=== PATIENT | male | born 1980 | race Caucasian/White ===

== ENCOUNTER 2016-08-05 12:26 | Emergency (ER) | payer SELFPAY ==
--- NOTE | 2016-08-05 13:30 | ED CLINICAL REPORT ---
Clinical Report - Physicians/Mid Levels [facility] [address] [place] [address] 08/05/2016 12:27 Patient: NARCISO AKINS Time Seen: 13:05; initial patient contact, initial documentation, patient care assumed. Arrived- By private vehicle. Historian- patient. HISTORY OF PRESENT ILLNESS Chief Complaint: COUGH. This started about 3 months ago and is still present. It was abrupt in onset and has been constant. The illness is described as moderate. The patient has had a cough and a sore throat. He has had scant amounts of thick, yellow, green sputum. No difficulty breathing, chest discomfort or pain, fever or muscle aches. No nasal congestion or discharge, sinus pressure, sinus drainage or ear pain. (has left over amoxicillin, self dx himself with bronchitis x6 wks ago and took the leftover abx). Additional history - No known contact with a sick individual. No recent travel. Similar symptoms previously: None. Recent medical care: Not recently seen/assessed. REVIEW OF SYSTEMS No vomiting or diarrhea. All systems otherwise negative, except as recorded above. PAST HISTORY See nurses notes. Hypertension. Surgeries: Appendectomy. Tonsillectomy. SOCIAL HISTORY Heavy tobacco smoker. Regular alcohol use; consumes beer and liquor. History of occasional drug use: marijuana. Not exposed to second-hand smoke at home. No recent travel. Is a local resident. FAMILY HISTORY Negative. ADDITIONAL NOTES The nursing notes have been reviewed with agreement regarding the chief complaint, HPI, ROS, PMH and patient medications and allergies. PHYSICAL EXAM Vital Signs: 08/05/2016 12:37 BP: 136/6. HR: 90. RR: 20. O2 saturation: 98%. Temp: 97.7 F. Pain level now: 0/10. Have been reviewed as normal and do not appear to be correct. Heart rate normal. Respiratory rate normal. Temperature normal. Oxygen saturation normal. Appearance: Alert. No acute distress. Eyes: Pupils equal, round and reactive to light. Eyes normal inspection. ENT: Ears normal. Nose normal. Pharynx abnormal. Uvula midline. (cobblestone pharynx). Neck: Normal inspection. Neck supple. CVS: Normal heart rate and rhythm. Heart sounds normal. Pulses normal. Respiratory: No respiratory distress. Breath sounds abnormal. Inspiratory mild bilateral wheezes diffusely. Abdomen: Soft and nontender. No organomegaly. Back: Normal inspection. Skin: Skin warm and dry. Normal skin color. No rash. Normal skin turgor. Extremities: Extremities exhibit normal ROM. No lower extremity edema. Neuro: Oriented X 3. No motor deficit. No sensory deficit. PROGRESS AND PROCEDURES Patient counseled in person regarding the patient's stable condition and diagnosis. Differential Diagnosis: Other possible considerations: viral illness, flu, sinusitis, pharyngitis, bronchitis, allergies, asthma, pneumonia. Above considerations are based on history and physical exam. Differential diagnosis was discussed with patient. Disposition: Discharged home in good and unchanged condition (13:30). Condition: good and stable. CLINICAL IMPRESSION Acute bacterial mucopurulent bronchitis. INSTRUCTIONS Drink plenty of fluids for the next 24 hours until better. Warnings: GENERAL WARNINGS: Return or contact your physician immediately if your condition worsens or changes unexpectedly, if not improving as expected, or if other problems arise. Specifically return if problem worsens. Prescription Medications: Albuterol HFA oral inhaler: inhale 1 to 2 puffs every four to six hours as needed for difficulty breathing. Dispense one (1) unit. No refills. Robitussin A-C cough syrup take one (1) teaspoon orally every 6 hours as needed for cough. Dispense sixty (60) mL. No refill. Zithromax 250 mg tablets: take 2 orally today, followed by 1 daily for the next 4 days. No refills. Substitution is permissible. Follow-up: Follow up with your doctor in about three days even if well. Call for an appointment. Summary of care provided to patient. Understanding of the discharge instructions verbalized by patient. (Electronically signed by Tiki Joya A.R.N.P. 08/05/2016 19:11)
--- NOTE | 2016-08-05 13:30 | ED NURSING NOTES ---
Clinical Report - Nurses [facility] [address] [place] [address] 08/05/2016 12:27 Patient: NARCISO AKINS TRIAGE Triage time 12:37. Acuity: LEVEL 4. Chief Complaint: COUGH. SEPSIS SCREEN: Sepsis Screen. Negative (no infection suspected/documented). --12:42 Juany Swift R.N. 12:37 08/05/16. BP: 136/6. HR: 90. RR: 20. O2 saturation: 98%. Temp: 97.7 F. Pain level now: 010. --12:42 Juany Swift R.N. Weight: 90.7 kg stated. Height/Length: 72 inches Per Patient. BMI: 27.1. --12:36 Juany Swift R.N. Medications Naproxen daily. --12:39 Juany Swift R.N. ProAir HFA Inhalation. --12:40 Juany Swift R.N. Allergies No Known Drug Allergy. --12:38 Juany Swift R.N. History Arrived by private vehicle. Historian: patient. Onset. (months). ( worsening). PAST MEDICAL HX: Hypertension. Immunizations: up-to-date. SURGERY HX: Adenoidectomy. Appendectomy. Tonsillectomy. SOCIAL HX: Heavy tobacco smoker- more than 2 packs per day. Regular alcohol use; consumes beer daily and two liquor and wine. Last drink was 12 hours ago. History of drug use: marijuana. No infectious disease exposure. --12:42 Juany Swift R.N. Interventions ID band on patient. --12:42 Juany Swift R.N. PHYSICAL ASSESSMENT GENERAL / NEURO / PSYCH: Alert. Oriented X 4. Appears in no acute distress. HEENT: Pupils equal, round and reactive to light. Mouth within normal limits upon inspection. Hoarse voice. RESPIRATORY: Cough. ( green sputum with cough). CVS: Normal sinus rhythm noted. SKIN: Skin is warm and dry. --12:44 Juany Swift R.N. NURSING PROGRESS NOTES Reassurance given. Call light placed in reach. Bed placed in lowest position. Patient waiting for evaluation. --12:44 Juany Swift R.N. ( pt has unfinished course of amoxicillin prescribed 6 weeks ago for bronchitis.). --12:45 Juany Swift R.N. DISPOSITION / DISCHARGE 13:42 08/05/16. Condition at departure: improved. The goals identified in the patient's plan of care were met. No learning barriers present. Discharge instructions provided and reviewed with the patient. Reviewed warnings. Reviewed medication(s). Treatments reviewed. Patient verbalized understanding. Written instructions provided in Lao. The patient was discharged by the nurse practitioner. He was discharged home and accompanied by family. He left the Emergency Department ambulatory and via private vehicle. Family member driving. FALL RISK ASSESSMENT: Fall risk assessment completed. No fall risk identified. --13:42 Antonio Reis R.N. 13:41 08/05/16. BP: 132/71. HR: 76. RR: 17. O2 saturation: 99% on room air. Temp: 98.2 F (oral). Pain level now: 05/08. --13:42 Antonio Reis R.N. 13:42 08/05/16. Departure time: 13:42. --13:42 Antonio Reis R.N. Locked/Released at 08/05/2016 13:50 by Antonio Reis R.N.
--- NOTE | 2016-08-05 13:30 | ED NURSING NOTES ---
Clinical Report - Nurses [facility] [address] [place] [address] 08/05/2016 12:27 Patient: NARCISO AKINS TRIAGE Triage time 12:37. Acuity: LEVEL 4. Chief Complaint: COUGH. SEPSIS SCREEN: Sepsis Screen. Negative (no infection suspected/documented). --12:42 Juany Swift R.N. 12:37 08/05/16. BP: 136/6. HR: 90. RR: 20. O2 saturation: 98%. Temp: 97.7 F. Pain level now: 010. --12:42 Juany Swift R.N. Weight: 90.7 kg stated. Height/Length: 72 inches Per Patient. BMI: 27.1. --12:36 Juany Swift R.N. Medications Naproxen daily. --12:39 Juany Swift R.N. ProAir HFA Inhalation. --12:40 Juany Swift R.N. Allergies No Known Drug Allergy. --12:38 Juany Swift R.N. History Arrived by private vehicle. Historian: patient. Onset. (months). ( worsening). PAST MEDICAL HX: Hypertension. Immunizations: up-to-date. SURGERY HX: Adenoidectomy. Appendectomy. Tonsillectomy. SOCIAL HX: Heavy tobacco smoker- more than 2 packs per day. Regular alcohol use; consumes beer daily and two liquor and wine. Last drink was 12 hours ago. History of drug use: marijuana. No infectious disease exposure. --12:42 Juany Swift R.N. Interventions ID band on patient. --12:42 Juany Swift R.N. PHYSICAL ASSESSMENT GENERAL / NEURO / PSYCH: Alert. Oriented X 4. Appears in no acute distress. HEENT: Pupils equal, round and reactive to light. Mouth within normal limits upon inspection. Hoarse voice. RESPIRATORY: Cough. ( green sputum with cough). CVS: Normal sinus rhythm noted. SKIN: Skin is warm and dry. --12:44 Juany Swift R.N. NURSING PROGRESS NOTES Reassurance given. Call light placed in reach. Bed placed in lowest position. Patient waiting for evaluation. --12:44 Juany Swift R.N. ( pt has unfinished course of amoxicillin prescribed 6 weeks ago for bronchitis.). --12:45 Juany Swift R.N. DISPOSITION / DISCHARGE 13:42 08/05/16. Condition at departure: improved. The goals identified in the patient's plan of care were met. No learning barriers present. Discharge instructions provided and reviewed with the patient. Reviewed warnings. Reviewed medication(s). Treatments reviewed. Patient verbalized understanding. Written instructions provided in French. The patient was discharged by the nurse practitioner. He was discharged home and accompanied by family. He left the Emergency Department ambulatory and via private vehicle. Family member driving. FALL RISK ASSESSMENT: Fall risk assessment completed. No fall risk identified. --13:42 Antonio Reis R.N. 13:41 08/05/16. BP: 132/71. HR: 76. RR: 17. O2 saturation: 99% on room air. Temp: 98.2 F (oral). Pain level now: 05/08. --13:42 Antonio Reis R.N. 13:42 08/05/16. Departure time: 13:42. --13:42 Antonio Reis R.N. Locked/Released at 08/05/2016 13:50 by Antonio Reis R.N.
--- NOTE | 2016-08-05 19:11 | ED MAR SUMMARY ---
..... Medication Administration [facility] [address] [place], [place] [id number] Patient: NARCISO AKINS Visit ID: [id number] 36y, M Weight: 90.7 kg Height/Length: 72 in BMI: 27.1 ALLERGIES: No Known Drug Allergy
--- NOTE | 2016-08-05 19:11 | ED MED RECONCILIATION SUMMARY ---
Patient: NARCISO AKINS Medication Reconciliation Report [facility] VisitID: [id number] [address] [place] [address] 36y, M Registration Date/Time: 08/05/2016 Weight: 90.7 kg Height/Length: 72 in. BMI: 27.1 ALLERGIES: No Known Drug Allergy The patient's Home Medications are listed below: THE FOLLOWING MEDICATIONS NEED TO BE RECONCILED: Naproxen daily ProAir HFA Inhalation The source(s) of the original Home Medication information: Not obtained. The following Medications were given to the patient in the Emergency Department: None. The following Medications were prescribed to the patient: Albuterol HFA oral inhaler: inhale 1 to 2 puffs every four to six hours as needed for difficulty breathing. Dispense one (1) unit. No refills. -- Tiki Joya A.R.NChristianP. Robitussin A-C cough syrup take one (1) teaspoon orally every 6 hours as needed for cough. Dispense sixty (60) mL. No refill. -- Tiki Joya A.R.N.P. Zithromax 250 mg tablets: take 2 orally today, followed by 1 daily for the next 4 days. No refills. Substitution is permissible. -- Tiki Joya A.R.NChristianP.
--- NOTE | 2016-08-05 19:11 | ED MED RECONCILIATION SUMMARY ---
Patient: NARCISO AKINS Medication Reconciliation Report [facility] VisitID: [id number] [address] [place] [address] 36y, M Registration Date/Time: 08/05/2016 Weight: 90.7 kg Height/Length: 72 in. BMI: 27.1 ALLERGIES: No Known Drug Allergy The patient's Home Medications are listed below: THE FOLLOWING MEDICATIONS NEED TO BE RECONCILED: Naproxen daily ProAir HFA Inhalation The source(s) of the original Home Medication information: Not obtained. The following Medications were given to the patient in the Emergency Department: None. The following Medications were prescribed to the patient: Albuterol HFA oral inhaler: inhale 1 to 2 puffs every four to six hours as needed for difficulty breathing. Dispense one (1) unit. No refills. -- Tiki Joya A.R.NChristianP. Robitussin A-C cough syrup take one (1) teaspoon orally every 6 hours as needed for cough. Dispense sixty (60) mL. No refill. -- Tiki Joya A.R.N.P. Zithromax 250 mg tablets: take 2 orally today, followed by 1 daily for the next 4 days. No refills. Substitution is permissible. -- Tiki Joya A.R.NChristianP.
--- NOTE | 2016-08-05 19:11 | ED MAR SUMMARY ---
..... Medication Administration Record [facility] [address] [place] [place], [place] [id number] Patient: NARCISO AKINS Visit ID: [id number] 36y, M Weight: 90.7 kg Height/Length: 72 in BMI: 27.1 ALLERGIES: No Known Drug Allergy
--- NOTE | 2016-08-05 19:11 | ED DISCHARGE INSTRUCTIONS ---
Patient: NARCISO AKINS General Instructions [facility] VisitID: [id number] [place] [address] 36y, M Registration Date/Time: 08/05/2016 INSTRUCTIONS Drink plenty of fluids for the next 24 hours until better. Warnings: GENERAL WARNINGS: Return or contact your physician immediately if your condition worsens or changes unexpectedly, if not improving as expected, or if other problems arise. Specifically return if problem worsens. Prescription Medications: Albuterol HFA oral inhaler: inhale 1 to 2 puffs every four to six hours as needed for difficulty breathing. Dispense one (1) unit. No refills. Robitussin A-C cough syrup take one (1) teaspoon orally every 6 hours as needed for cough. Dispense sixty (60) mL. No refill. Zithromax 250 mg tablets: take 2 orally today, followed by 1 daily for the next 4 days. No refills. Substitution is permissible. Follow-up: Follow up with your doctor in about three days even if well. Call for an appointment. Summary of care provided to patient. Understanding of the discharge instructions verbalized by patient. ADDITIONAL INFORMATION Bronchitis (Adult: Abx Tx) BRONCHITIS is an infection of the air passages (bronchial tubes). It often occurs during the common cold. Symptoms include cough with mucus (phlegm) and low-grade fever. Bronchitis usually lasts 7-14 days. Mild cases can be treated with simple home remedies. More severe infection is treated with an antibiotic. Home Care: If symptoms are severe, rest at home for the first 2-3 days. When you resume activity, don't let yourself get too tired. Do not smoke. Avoid being exposed to the smoke of others. You may use acetaminophen (Tylenol) or ibuprofen (Motrin, Advil) to control fever or pain, unless another medicine was prescribed for this. [NOTE: If you have chronic liver or kidney disease or ever had a stomach ulcer or GI bleeding, talk with your doctor before using these medicines.] Your appetite may be poor, so a light diet is fine. Avoid dehydration by drinking 6-8 glasses of fluids per day (water, soft, drinks, juices, tea, soup, etc.). Extra fluids will help loosen secretions in the lungs. [id number] cough medicines that containdextromethorphan(such as Robitussin DM) and decongestants (Actifed or Sudafed) may help relieve cough and congestion. [NOTE: Do not use decongestants if you have high blood pressure.] Finish all antibiotic medicine, even if you are feeling better after only a few days. Follow Up with your doctor or as directed if you dont start to feel better after three days. [NOTE: If you are age 65 or older, or if you have chronic asthma or COPD, we recommend a PNEUMOCOCCAL VACCINATION every five years and a yearly INFLUENZAVACCINATION (FLU-SHOT) every . Ask your doctor about this. If you had an X-ray, a radiologist will review it. You will be notified of any new findings that may affect your care.] Get Prompt Medical Attention if any of the following occur: Fever over 100.4F (38.0C) for more than three days Trouble breathing, wheezing or pain with breathing Coughing up blood or increased amounts of colored sputum Weakness, drowsiness, headache, facial pain, ear pain or a stiff neck Albuterol Sulfate Pressurized inhalation, suspension What is this medicine? ALBUTEROL (al BYOO ter ole) is a bronchodilator. It helps open up the airways in your lungs to make it easier to breathe. This medicine is used to treat and to prevent bronchospasm. How should I use this medicine? This medicine is for inhalation through the mouth. Follow the directions on your prescription label. Take your medicine at regular intervals. Do not use more often than directed. Make sure that you are using your inhaler correctly. Ask you doctor or health care provider if you have any questions. Talk to your program coordinator for residence life regarding the use of this medicine in children. Special care may be needed. What side effects may I notice from receiving this medicine? Side effects that you should report to your doctor or health menagerie caretaker as soon as possible: allergic reactions like skin rash, itching or hives, swelling of the face, lips, or tongue breathing problems chest pain feeling faint or lightheaded, falls high blood pressure irregular heartbeat fever muscle cramps or weakness pain, tingling, numbness in the hands or feet vomiting Side effects that usually do not require medical attention (report to your doctor or health menagerie caretaker if they continue or are bothersome): cough difficulty sleeping headache nervousness or trembling stomach upset stuffy or runny nose throat irritation unusual taste What may interact with this medicine? anti-infectives like chloroquine and pentamidine caffeine cisapride diuretics medicines for colds medicines for depression or for emotional or psychotic conditions medicines for weight loss including some herbal products methadone some antibiotics like clarithromycin, erythromycin, levofloxacin, and linezolid some heart medicines steroid hormones like dexamethasone, cortisone, hydrocortisone theophylline thyroid hormones What if I miss a dose? If you miss a dose, use it as soon as you can. If it is almost time for your next dose, use only that dose. Do not use double or extra doses. Where should I keep my medicine? Keep out of the reach of children. Store at room temperature between 15 and 30 degrees C (59 and 86 degrees F). The contents are under pressure and may burst when exposed to heat or flame. Do not freeze. This medicine does not work as well if it is too cold. Throw away any unused medicine after the expiration date. Inhalers need to be thrown away after the labeled number of puffs have been used or by the expiration date; whichever comes first. Ventolin HFA should be thrown away 12 months after removing from foil pouch. Check the instructions that come with your medicine. What should I tell my health care provider before I take this medicine? They need to know if you have any of the following conditions: diabetes heart disease or irregular heartbeat high blood pressure pheochromocytoma seizures thyroid disease an unusual or allergic reaction to albuterol, levalbuterol, sulfites, other medicines, foods, dyes, or preservatives or trying to get breast-feeding What should I watch for while using this medicine? Tell your doctor or health menagerie caretaker if your symptoms do not improve. Do not use extra albuterol. If your asthma or bronchitis gets worse while you are using this medicine, call your doctor right away. If your mouth gets dry try chewing sugarless gum or sucking hard candy. Drink water as directed. Azithromycin Oral tablet What is this medicine? AZITHROMYCIN (az ith rafaela MYE sin) is a macrolide antibiotic. It is used to treat or prevent certain kinds of bacterial infections. It will not work for colds, flu, or other viral infections. How should I use this medicine? Take this medicine by mouth with a full glass of water. Follow the directions on the prescription label. The tablets can be taken with food or on an empty stomach. If the medicine upsets your stomach, take it with food. Take your medicine at regular intervals. Do not take your medicine more often than directed. Take all of your medicine as directed even if you think your are better. Do not skip doses or stop your medicine early. Talk to your program coordinator for residence life regarding the use of this medicine in children. Special care may be needed. What side effects may I notice from receiving this medicine? Side effects that you should report to your doctor or health menagerie caretaker as soon as possible: allergic reactions like skin rash, itching or hives, swelling of the face, lips, or tongue confusion, nightmares or hallucinations dark urine difficulty breathing hearing loss irregular heartbeat or chest pain pain or difficulty passing urine redness, blistering, peeling or loosening of the skin, including inside the mouth white patches or sores in the mouth yellowing of the eyes or skin Side effects that usually do not require medical attention (report to your doctor or health menagerie caretaker if they continue or are bothersome): diarrhea dizziness, drowsiness headache stomach upset or vomiting tooth discoloration vaginal irritation What may interact with this medicine? Do not take this medicine with any of the following medications: lincomycin This medicine may also interact with the following medications: amiodarone antacids cyclosporine digoxin magnesium nelfinavir phenytoin warfarin What if I miss a dose? If you miss a dose, take it as soon as you can. If it is almost time for your next dose, take only that dose. Do not take double or extra doses. Where should I keep my medicine? Keep out of the reach of children. Store at room temperature between 15 and 30 degrees C (59 and 86 degrees F). Throw away any unused medicine after the expiration date. What should I tell my health care provider before I take this medicine? They need to know if you have any of these conditions: kidney disease liver disease irregular heartbeat or heart disease an unusual or allergic reaction to azithromycin, erythromycin, other macrolide antibiotics, foods, dyes, or preservatives or trying to get breast-feeding What should I watch for while using this medicine? Tell your doctor or health menagerie caretaker if your symptoms do not improve. Do not treat diarrhea with over the counter products. Contact your doctor if you have diarrhea that lasts more than 2 days or if it is severe and watery. This medicine can make you more sensitive to the sun. Keep out of the sun. If you cannot avoid being in the sun, wear protective clothing and use sunscreen. Do not use sun lamps or tanning beds/booths. You have been given the following additional information: Bronchitis, Antiobiotic Treatment (Adult) Albuterol Sulfate Pressurized inhalation, suspension Azithromycin Oral tablet (Electronically signed by Tiki Joya A.R.N.P. 08/05/2016 19:11)
== END 2016-08-05 13:42 | disposition home or self-care (01) ==
LOC: ED SRH 12:26
DX: J20.9 Acute bronchitis, unspecified (principal); I10 Essential (primary) hypertension; Z72.0 Tobacco use; Z79.899 Other long term (current) drug therapy